=== PATIENT | female | born 1960 | race Caucasian/White ===

== ENCOUNTER → 2018-02-20 | Outpatient (CLI) | payer OTHER ==
[~2018-02-20] MED LIST: ACET-1600 PO; ALPR0.25 PO; AZEL50GE5 TP; CHOL500015 PO; CLIN300C8 PO; DOCU-131 PO; HYDR-3240 PO; LEVO137T2 PO; MAGN100T6 PO; NAPR220C2 PO; ONDA4TAB7 PO; POTA10TA6 PO; TRIA1CAP PO
== END | disposition home or self-care (01) ==
LOC: RAD 08:33
PROVIDERS: ATTEND Registered Nurse
DX: M54.2 Cervicalgia (principal)
CPT/HCPCS: 72050

== ENCOUNTER → 2019-12-25 | Outpatient (CLI) | payer OTHER | END | disposition home or self-care (01) | LOC: RAD 17:34 | PROVIDERS: ATTEND Family Medicine | DX: M79.662 Pain in left lower leg (principal) ==

== ENCOUNTER → 2020-12-10 | Outpatient (CLI) | payer OTHER ==
[~2020-12-10] MED LIST changes: -CLIN300C8 PO; +CLIN300C9 PO; +GADOTERATE 10 MMOL/20ML SYR ONE; +GADOTERATE 5 MMOL/10ML SYR ONE; +HYDR-2214 PO; -HYDR-3240 PO
== END | disposition home or self-care (01) ==
LOC: CFH 08:52
PROVIDERS: ATTEND Internal Medicine
DX: M47.817 Spondylosis without myelopathy or radiculopathy, lumbosacral region (principal); M53.3 Sacrococcygeal disorders, not elsewhere classified; R51.9 Headache, unspecified; M54.5 Low back pain; M81.0 Age-related osteoporosis without current pathological fracture; M15.0 Primary generalized (osteo)arthritis; R16.1 Splenomegaly, not elsewhere classified; K80.20 Calculus of gallbladder without cholecystitis without obstruction; M48.16 Ankylosing hyperostosis [Forestier], lumbar region; Z86.011 Personal history of benign neoplasm of the brain
CPT/HCPCS: 70553; 72110; 72202; 76705; 77080; A9575